=== PATIENT | female | born 1955 | race Caucasian/White ===

== ENCOUNTER 2021-09-14 16:21 | Emergency (ER) | payer OTHER ==
[~2021-09-14] VITALS: Ht 152.4 cm; Wt 88.9 kg
[~2021-09-14 16:21] MED LIST: KETO10TA2 PO
[2021-09-14] MEDS ORDERED: BENICAR40 MG (17:01)
[2021-09-14] MEDS ORDERED: NORFLEX100MG PO (20:17)
== END 2021-09-14 20:23 | disposition home or self-care (01) ==
LOC: ER 16:21
DX: T07.XXXA Unspecified multiple injuries, initial encounter (principal); V49.9XXA Car occupant (driver) (passenger) injured in unspecified traffic accident, initial encounter; Y93.89 Activity, other specified; Y92.413 State road as the place of occurrence of the external cause; Y99.9 Unspecified external cause status; Z88.0 Allergy status to penicillin; I10 Essential (primary) hypertension